=== PATIENT | male | born 1995 | race Caucasian/White ===

== ENCOUNTER 2020-11-22 21:31 | Emergency (ER) | payer OTHER ==
[~2020-11-22] VITALS: Ht 182.9 cm; Wt 63.5 kg
[2020-11-22 21:37] VITALS: BP_SYST 123
[2020-11-22] MEDS: DIPH-TET-PERTUS Vaccine 0.5 ML VIAL (ADACEL) I.M. ONE (22:12)
[2020-11-22] MEDS: BACITRACIN ZINC 15 GM TOPICAL OINTMENT TP ONE (22:14)
[2020-11-22] MEDS ORDERED: BACTROBAN TP (22:28)
[2020-11-22 22:34] VITALS: BP_SYST 112
== END 2020-11-22 22:34 | disposition home or self-care (01) ==
LOC: SED 21:31
DX: S30.861A Insect bite (nonvenomous) of abdominal wall, initial encounter (principal); Z88.1 Allergy status to other antibiotic agents; W57.XXXA Bitten or stung by nonvenomous insect and other nonvenomous arthropods, initial encounter; Y93.89 Activity, other specified; Y92.89 Other specified places as the place of occurrence of the external cause; Y99.8 Other external cause status
CPT/HCPCS: 90715; 99283